=== PATIENT | male | born 1955 | race American Indian/Alaskan Native ===

== ENCOUNTER 2016-09-01 16:11 | Emergency (ER) | payer OTHER ==
[2016-09-01] MEDS ORDERED: NACL 0.9% 1000 ML 1,000 ML IV ONE (16:32)
--- NOTE | 2016-09-01 16:37 | Emergency Department Report ---
HPI - General Chief Complaint: Syncope Time Seen by Provider: 09/01/16 16:30 - HPI HPI: Patient is a 60-year-old -[place] male, who presented to the ED after a period of near syncope. Patient was sitting in his care at home slightly [place] and felt like he was going to pass out. Patient did not lose consciousness. Patient does have a history of hypothyroidism for which he takes levothyroxine. The patient denies any palpitation chest pain shortness of breath with his symptoms. At this moment it is completed of the back of the head pain. Which is described as tight 3/10 without radiation. Patient denies any fever chills night sweats. He stated that he has been compliant with his thyroid medication. He does admit to drink alcohol last night but he did not take any today. Denied any drug use. ED Past Medical Hx - Past Medical History Hx Diabetes: No Hx Deep Vein Thrombosis: No Hx Pulmonary Embolism: No - Surgical History Hx Coronary Stent: No Hx Open Heart Surgery: No - Family History Family history: no significant - Social History Smoking Status: Current Some Day Smoker Substance Use Type: Alcohol - Medications Home Medications: Home Medications Medication Instructions Recorded Confirmed Last Taken Type Levothyroxine [Synthroid] 75 mcg PO DAILY 09/01/16 09/01/16 Unknown History ED Review of Systems ROS: Stated complaint: SEIZURE Other details as noted in HPI Comment: All other systems reviewed and negative Constitutional: weakness Neurological: headache, other (near syncope) Physical Exam - Physical Exam Physical Exam: Vital Signs reviewed. Gen. alert and oriented 3 in no distress Head atraumatic normocephalic Eyes PERR LA EOMI Chest regular rate and rhythm normal S1-S2 lungs clear bilaterally Abdomen soft nondistended Back no point tenderness paravertebral tenderness Neuro no focal deficit. Psych normal mood. ED Course - Reevaluation(s) Reevaluation #1: 09/01/16 19:25 VITALS were reviewed by Preston throughout this hospital stay. Patient was offered admission for further workup but he refused. ED Medical Decision Making - Lab Data Result diagrams: 09/01/16 16:42 09/01/16 16:42 - EKG Data EKG shows normal: sinus rhythm Rate: normal - EKG Data When compared to previous EKG there are: no significant change Interpretation: no acute changes - Radiology Data Radiology results: report reviewed, image reviewed - Differential Diagnosis CVA, orthostatic hypotension, syncope, Critical care attestation.: If time is entered above; I have spent that time in minutes in the direct care of this critically ill patient, excluding procedure time. ED Disposition Clinical Impression: Dehydration, Syncope Disposition: DC-01 TO HOME OR SELFCARE Is pt being admited?: No Does the pt Need Aspirin: No Condition: Stable Instructions: Syncope (ED) Referrals: PRIMARY CARE, [Primary Care Provider] - 3-5 Days
[2016-09-01 17:24] LABS: Chloride 100.5 mmol/L (98-107); Potassium 3.7 mmol/L (3.6-5.0); Sodium 139 mmol/L (137-145)
[2016-09-01 17:25] LABS: Alanine Aminotransferase 27 units/L (7-56); Albumin/Globulin Ratio 1.4 %; Alkaline Phosphatase 59 units/L (35-129); Anion Gap 18 mmol/L; BUN/Creatinine Ratio 8.57; Blood Urea Nitrogen 12 mg/dL (9-20); Calcium 8.7 mg/dL (8.4-10.2); Carbon Dioxide 24 mmol/L (22-30); Glucose 135 mg/dL (75-100); Total Protein 6.8 g/dL (6.3-8.2)
[2016-09-01 17:32] LABS: Basophils % (Auto) 0.9 % (0.0-1.8); Hematocrit 47.4 % (35.5-45.6); Hemoglobin 16.2 gm/dl (11.8-15.2); Mean Corpuscular HGB Conc 34 % (32-34); Mean Corpuscular Hemoglobin 32 pg (28-32); Mean Corpuscular Volume 95 fl (84-94); Platelet Count 181 K/mm3 (140-440); Red Blood Count 5.02 M/mm3 (3.65-5.03); Red Cell Distribution Width 13.4 % (13.2-15.2); White Blood Count 5.2 K/mm3 (4.5-11.0)
[2016-09-01 17:33] LABS: INR 1.24 (0.87-1.13); Partial Thromboplastin Time 32.2 Sec. (24.2-36.6)
[2016-09-01] MEDS ORDERED: NACL ONE (17:37)
--- NOTE | 2016-09-01 17:51 | XRay Report ---
FINAL REPORT EXAM: XR CHEST 1V AP HISTORY: chest pain TECHNIQUE: upright single view chest PRIORS: None. FINDINGS: Cardiac and mediastinal contours are unremarkable. No focal pulmonary infiltrate is identified. No pleural fluid collection seen. Pulmonary vasculature is unremarkable. IMPRESSION: Negative single-view chest
--- NOTE | 2016-09-01 18:32 | Cat Scan Report ---
FINAL REPORT EXAM: CT HEAD/BRAIN WO/W CON HISTORY: syncope TECHNIQUE: CT head with and without contrast PRIORS: None. FINDINGS: No acute intra-axial or extra-axial hemorrhage is identified. There is no evidence of midline shift or mass effect. The ventricles and sulci are within normal limits. Langston-white matter differentiation is intact. No acute parenchymal abnormalities seen. No areas of abnormal enhancement are identified on post-contrast exam Bony calvarium is grossly intact. Visualized portions of the mastoids and paranasal sinuses are unremarkable. IMPRESSION: Negative CT head
--- NOTE | 2016-09-01 18:37 | Cat Scan Report ---
FINAL REPORT EXAM: CT ANGIO HEAD HISTORY: syncope with occipital pain CT angiogram head with intravenous contrast. Multiplanar and maximum intensity projection reconstructions were obtained. PRIORS: None. FINDINGS: Normal appearance of the intracranial portion of the carotid arteries. The MCA and JESSICA distributions are unremarkable Distal vertebral arteries are intact. The basilar and [employer] circulation is within normal limits No evidence for major vascular occlusion or aneurysm IMPRESSION: Normal CT angiogram head
--- NOTE | 2016-09-01 18:44 | Cat Scan Report ---
FINAL REPORT EXAM: CT ANGIO CHEST HISTORY: syncope with sob TECHNIQUE: CT chest CT angiogram with reconstructions PRIORS: None. FINDINGS: There is no evidence of filling defect within the central pulmonary vasculature to suggest the presence of acute pulmonary embolus. No evidence of mediastinal pathologic lymph node enlargement Heart and great vessels are unremarkable. The aorta is normal in caliber. No focal pulmonary infiltrate identified. No pleural fluid collection seen. No acute pulmonary abnormality noted. Visualized portion of the upper abdomen demonstrates no acute change. IMPRESSION: Negative. No CT evidence of acute pulmonary embolus
[2016-09-01 19:39] VITALS: BP 117/75
== END 2016-09-01 19:37 | disposition home or self-care (01) ==
LOC: ED 16:11
DX: E86.0 Dehydration (principal); R55 Syncope and collapse; F17.200 Nicotine dependence, unspecified, uncomplicated; E03.9 Hypothyroidism, unspecified
CPT/HCPCS: 36415; 70470; 70496; 71010; 71275; 80053; 82962; 84484; 85025; 85379; 85610; 85730; 93005; 93010; 96360; 96361; 99285; J7030; Q9967